=== PATIENT | female | born 1965 | race Caucasian/White ===

== ENCOUNTER 2018-05-31 05:26 | Day surgery (SDC) | payer BC ==
[~2018-05-31] VITALS: Ht 165.1 cm; Wt 106.6 kg
[~2018-05-31 05:26] MED LIST: CRESTOR5 MG PO; DAILY MULTIPLE1 EACH PO; NASONEX17 GM BOTH NARES; TIMOPTIC-0100 DROP/1 BOTH EYES; TOPROL XL50 MG PO; TRILIPIX135 MG PO; VITAMIN D32000 UNI1 PO; ZYRTEC10 M3 PO
[2018-05-31 06:11] VITALS: BP 118/75
[2018-05-31] MEDS ORDERED: MOTRIN800 MG PO (10:13)
[2018-05-31] MEDS ORDERED: PERCOCET 5/31 TABLET PO (10:13)
[2018-05-31 12:04] VITALS: BP 122/63
[2018-05-31 13:01] VITALS: BP 108/56
[2018-05-31 15:25] VITALS: BP 110/60
== END 2018-05-31 15:28 | disposition home or self-care (01) ==
LOC: SDC 05:26
DX: D25.1 Intramural leiomyoma of uterus (principal); N83.8 Other noninflammatory disorders of ovary, fallopian tube and broad ligament; N92.0 Excessive and frequent menstruation with regular cycle; I10 Essential (primary) hypertension; E78.5 Hyperlipidemia, unspecified
CPT/HCPCS: 88307; J0690; J1100; J1885; J2250; J2405; J2710; J2795; J3010; J7643; Q0175; S0020